=== PATIENT | female | born 1980 | race Caucasian/White ===

== ENCOUNTER → 2023-06-08 13:45 | Outpatient (BNV) | payer OTHER, SELFPAY | PROVIDERS: PCP Nurse Practitioner Family; Referring Provider Nurse Practitioner Family; Visit Provider Internal Medicine Medical Oncology | DX: D75.1 Secondary polycythemia (principal) | CPT/HCPCS: 99213; 99214 ==

== ENCOUNTER 2023-06-09 08:31 | Outpatient (REF) | payer OTHER, SELFPAY ==
[2023-06-09 09:02] LABS: Appearance Urine Clear; Color Urine Yellow; Glucose Urine UA Negative (Negative); Leukocyte Esterase Urine Negative (Negative); Nitrite Urine Negative (Negative); Specific Gravity - Urine 1.025 (1.005-1.025); Urine Blood Negative (Negative); Urine Ketones Negative (Negative); Urine Protein Negative (Neg-Trace)
== END 2023-06-09 08:32 | disposition home or self-care (01) ==
LOC: HO.LNP 08:31
PROVIDERS: Visit Provider Internal Medicine Medical Oncology
DX: D75.1 Secondary polycythemia (principal)
CPT/HCPCS: 81003

== ENCOUNTER 2023-06-11 12:48 | Outpatient (REF) | payer OTHER, SELFPAY ==
--- NOTE | ~2023-06-11 | US_ITS ---
EXAMINATION: US RETROPERITONEAL LIMITED (RENAL ONLY) CLINICAL INFORMATION: Question renal tumor. COMPARISON: None available. TECHNIQUE: Real-time ultrasound of the kidneys was performed. FINDINGS: RIGHT KIDNEY: 11 x 3.6 x 5.0 cm (SAG x AP x TRV). The kidney is normal in size, contour, and echogenicity. Renal cortical thickness is normal. No calculi or focal parenchymal lesions. No hydronephrosis. LEFT KIDNEY: 10.4 x 4.0 x 4.8 cm (SAG x AP x TRV). The kidney is normal in size, contour, and echogenicity. Renal cortical thickness is normal. No calculi or focal parenchymal lesions. No hydronephrosis. US/US renal BI IMPRESSION: Both kidneys are normal in size and echogenicity. No renal mass is identified.
== END 2023-06-11 12:49 | disposition home or self-care (01) ==
LOC: HO.HMGCX 12:48
PROVIDERS: PCP Nurse Practitioner Family; Visit Provider Internal Medicine Medical Oncology
DX: D75.1 Secondary polycythemia (principal)
CPT/HCPCS: 76775

== ENCOUNTER 2023-12-14 08:17 | Outpatient (REF) | payer OTHER, SELFPAY | END 2023-12-14 08:18 | disposition home or self-care (01) | LOC: HO.BBR 08:17 | PROVIDERS: Visit Provider Internal Medicine Medical Oncology | DX: D75.1 Secondary polycythemia (principal) | CPT/HCPCS: 85014; 85018; 99195 ==

== ENCOUNTER 2023-12-21 14:06 | Outpatient (REF) | payer OTHER, SELFPAY | END 2023-12-21 14:07 | disposition home or self-care (01) | LOC: HO.BBR 14:06 | PROVIDERS: PCP Nurse Practitioner Family; Visit Provider Internal Medicine Medical Oncology | DX: D75.1 Secondary polycythemia (principal) | CPT/HCPCS: 85014; 85018; 99195 ==

== ENCOUNTER 2024-03-14 11:00 | Outpatient (REF) | payer OTHER, SELFPAY ==
--- OUTSIDE RECORDS SUMMARY | 2024-03-21 13:00 | XMS_ITS | Continuity of Care Document ---
Author Organization [facility] Nico [address] Address [address] [place] [address]- Care Team Providers Care Granite Polisher Apprentice Name Role Phone Arabella Keen MD Primary Care Physician Encounter [facility] [place] Date(s): 02/18/24 - 03/19/24 [facility] Adult [address] [place] [address]- Encounter Type: Triage Allergies, Adverse Reactions, Alerts Substance Criticality Severity Reaction Reaction Severity Status naproxen Syncope Active Antacid vomiting Active aspirin vomiting Active Nuts 1 Active Apples 2 Active 1pt reports tongue swells with some nuts 2pt reports vomiting with raw apple Immunizations Given and Recorded Vaccine Date Status Refusal Reason tetanus-diphtheria toxoids (Td) 05/18/23 Given influenza virus vaccine, inactivated 01/15/23 Kaz rded influenza virus vaccine, inactivated 01/23/22 Kaz rded influenza virus vaccine, inactivated 01/20/18 Kaz rded influenza virus vaccine, inactivated 1 01/30/16 Re corded influenza virus vaccine, inactivated 02/19/15 Give n influenza virus vaccine, inactivated 2 01/09/14 Gi elder influenza virus vaccine, inactivated 3 02/07/13 Gi elder influenza virus vaccine, inactivated 4 02/18/10 Gi elder pneumococcal 20-valent conjugate vaccine 05/15/22 Given SARS-CoV-2 (COVID-19) mRNA BNT-162b2 vac 01/20/21 Recorded SARS-CoV-2 (COVID-19) mRNA-1273 vaccine 05/16/20 R ecorded SARS-CoV-2 (COVID-19) mRNA-1273 vaccine 04/25/20 R ecorded SARS-CoV-2 (COVID-19) mRNA-1273 vaccine 04/18/20 R ecorded Influenza Virus Vaccine (oldterm) 01/25/20 Recorde d tetanus/diphtheria/pertussis, acel(Tdap) 5 09/06/12 Given tetanus/diphtheria/pertussis, acel(Tdap) 11/06/10 Given Fluzone (oldterm) 6 02/08/12 Given Pneumococcal Vaccine (oldterm) 06/07/08 Given Tet/Diphth/Acel, Pertussis (oldterm) 06/07/08 Give n 1Result Comment: [facility]03[facility]09/2016[facility] 3[facility] Note: [facility] 4Admin Note: given at [facility] 5Admin Note: vis given 05/05/11 6Admin Note: 02-03-12 [facility] [employer] Problem List Condition Confirmation Course Effective Dates Status H ealth Status Informant Acute sinusitis Confirmed Active Allergic rhinitis Confirmed Active Bee sting allergy Confirmed Active Anxiety Confirmed Active Asthma - mild intermittent Confirmed Active Dizziness Confirmed Active Environmental allergies Confirmed Active Polycythemia Confirmed Active GERD (gastroesophageal reflux disease) Confirmed 02/14/09 Active Chronic GERD Confirmed Active Irritable bowel syndrome (IBS) Confirmed Active IBS (irritable bowel syndrome) Confirmed Active Major depression Confirmed 12/26/11 Active Migraine, Unspecified, without Mention of Intractable Migraine, without Mention of Status Migrainosus Confirmed Active Mild persistent asthma Confirmed Active Obese class I Confirmed Active Obesity (BMI 30-39.9) Confirmed Active Right ear pain Confirmed Active Retinal detachment Confirmed Active Scoliosis Confirmed Active Tachycardia Confirmed Active Fibroid uterus Confirmed Active Social History Social History Type Response Smoking Status Former smoker, quit more than 30 days ago; Other: quit in 2001; entered on: 02/23/22 Sex Sex Representation Female (finding) Patient Care team information Care Team Personnel Name: Lyndsay Martins Position: [facility] RN Member Role: Primary Care Nurse Name: Ruchi Valenzuela RN Position: S RN Member Role: Primary Care Nurse Name: Arabella Keen MD Position: [facility] Physician - Primary Care Member Role: PCP Address: [address] [place] [address]- Telecom: Care Team Related Persons Name: CLIFF RUELAS Name: MARCELLA JOSEPH Insurance Providers Guarantor name: ARABELLA CASTROMADYSON [facility] Plan Information #: 1 Payer: [facility] POS Member Number: NA Policy Number: NA Group Number: NA
--- OUTSIDE RECORDS SUMMARY | 2024-03-21 13:00 | XMS_ITS | Continuity of Care Document ---
Author Organization [facility] [address] Address [address] [place] [address]- Care Team Providers Care Branner Machine Tender Name Role Phone Arabella Keen MD Primary Care Physician [phone] Encounter [facility] [place] [place] Date(s): 02/15/24 - 03/16/24 [facility] Adult [address] [place] [address]- Encounter Type: Triage Allergies, Adverse Reactions, Alerts Substance Criticality Severity Reaction Reaction Severity Status naproxen Syncope Active aspirin vomiting Active Nuts 1 Active Apples 2 Active Antacid vomiting Active 1pt reports tongue swells with some [...] at [facility] 4Admin Note: given at [facility] 5Admin Note: vis given 05/05/11 6Admin Note: 02-03-12 [facility] Problem List Condition Confirmation Course Effective Dates [...] Care Team Personnel Name: Lyndsay Martins Position: [facility] RN Member Role: Primary Care Nurse Name: Ruchi Valenzuela RN Position: S RN Member Role: Primary Care Nurse Name: Arabella Keen MD Position: [facility] Physician - Primary Care Member Role: PCP Address: [address] [place] [address]- Telecom: Care Team Related Persons Name: CLIFF RUELAS Name: MARCELLA JOSEPH Insurance Providers Guarantor name: ARABELLA CASTROMADYSON [facility] Plan Information #: 1 Payer: [facility] POS Member Number: NA Policy Number: NA Group Number: NA
--- OUTSIDE RECORDS SUMMARY | 2024-03-21 13:00 | XMS_ITS | Continuity of Care Document ---
Author Organization [facility] Nico [facility] Address [address] [place] [address]- Care Team Providers Care Unit Secy Name Role Phone Arabella Keen MD Primary Care Physician En[place] [facility] [place](s): 02/14/24 - 02/21/24 [facility] Adult [address] [place] [address]- Encounter Diagnosis Polycythemia(Discharge Diagnosis) - 02/14/24 Major depression(Discharge Diagnosis) - 02/14/24 Tachycardia(Discharge Diagnosis) - 02/14/24 Anxiety(Discharge Diagnosis) - 02/14/24 Migraine, Unspecified, without Mention of Intractable Migraine, without Mention of Status Migrainosus(Discharge Diagnosis) - 02/14/24 Bee sting allergy(Discharge Diagnosis) - 02/14/24 Fibroid uterus(Discharge Diagnosis) - 02/14/24 Retinal detachment(Discharge Diagnosis) - 02/14/24 Attending Physician: Arabella Keen MD Allergies, Adverse Reactions, Alerts Substance Reaction Severity Status naproxen Syncope Active Antacid [...] Gi elder influenza virus vaccine, inactivated 4 11/9/10 Gi elder pneumococcal 20-valent conjugate vaccine 05/15/22 [...] (oldterm) 06/07/08 Give n 1Result Comment: [03/09/2016] [facility] 2Admin Note: GOT AT [facility] 3Admin Note: given at [facility] 4Admin Note: given at [facility] 5Admin Note: vis given 05/05/11 6Admin Note: 02-03-12 AT [facility] Medications Albuterol (Eqv-ProAir HFA) 90 mcg/inh inhalation aerosol 2 puffs, Inhalation, Every 6 hours, # 8.5 Gm, 4 Refills, Maintenance, 02/14/24 15:35:00 EST, [facility]/pharmacy #[id number], Partial fill upon patient request if the prescription is for a schedule II opioid drug., 2 puffs Inhalation Every 6 hours, 165, cm, ... Start Date: 02/14/24 Status: Ordered Benadryl 25 mg oral capsule 2 capsule = 50 mg, By Mouth, 2 times a day, PRN for allergy symptoms, # 30 capsule, 0 Refills, Maintenance, 04/16/22 17:41:00 EST, Capsule, Partial fill upon patient request if the prescription is for a schedule II opioid drug. Start Date: 04/16/22 Status: Ordered cannibus edibles cannibus edibles, Refills 0, Maintenance, 04/21/22 13:11:00 EST, Supply Start Date: 04/21/22 Status: Ordered Diflucan 150 mg oral tablet See Instructions, 1 tablet By Mouth as a single dose as needed for yeast infection, # 1 tablet, 0 Refills, Maintenance, 05/27/23 7:56:00 EST, Tablet, [id number], Partial fill upon patient request if the prescription is for a schedule II opioid... Start Date: 05/27/23 Status: Ordered doxepin 10 mg oral capsule 1 capsule, By Mouth, Daily at bedtime, # 90 capsule, 0 Refills, Maintenance, 06/05/23 12:27:00 EST,[id number], 165, cm, 05/27/23 7:51:00 EST, Height, 92.1, kg, 04/22/22 20:52:00 EST, Dry Weight Start Date: 06/05/23 Status: Ordered eletriptan 40 mg oral tablet See Instructions, TAKE 1 TABLET BY MOUTH ONCE NEEDED FOR MIGRAINE, MAY REPEAT IN 2 HOURS IF NEEDED, # 6 tablet, 6 Refills, Maintenance, 08/17/22 16:58:00 EDT, [id number], 165, cm, 07/20/2312:47:00 EDT, Height, 92.1, kg, 04/22/22 20:52:00 E... Start Date: 08/17/22 Status: Ordered hydrOXYzine hydrochloride 10 mg oral tablet 2 tablet = 20 mg, By Mouth, 4 times a day, PRN for anxiety, # 80 tablet, 5 Refills, Acute 03/15/24 15:38:00 EST, 02/14/24 15:38:00 EST, Tablet, [id number], Partial fill upon patient request if the prescription is for a schedule II opioid drug.... Start Date: 02/14/24 Stop Date: 03/15/24 Status: Ordered indomethacin 25 mg oral capsule See Instructions, TAKE 1 CAPSULE BY MOUTH AT ONSET OF MIGRAINE WITH ELETRIPTAN, # 180 capsule, 3 Refills, 08/10/22 17:47:00 EDT, [id number], 165, cm, 07/20/22 13:47:00 EDT, Height, 92.1, kg, 04/22/22 20:52:00 EST, Dry Weight Start Date: 08/10/22 Status: Ordered Liletta 52 mg intrauterine device 1 each = 52 mg, Once, 0 Refills, Maintenance, 02/01/19 7:47:48 EDT Start Date: 02/01/19 Status: Ordered montelukast 10 mg oral tablet 10 mg, 1, tablet, By Mouth, Daily, # 90 tablet, Refills 3, Tot. Refills 3, Maintenance, 02/14/24 15:34:00 EST, Route to Pharmacy Electronically, [facility]/pharmacy #[id number], Partial fill upon patient request if the prescription is for a schedule II opioid drug... Start Date: 02/14/24 Status: Ordered Multivitamin Daily, 0 Refills, Maintenance, 06/08/16 11:20:42 Start Date: 06/08/16 Status: Ordered pantoprazole 40 mg oral delayed release tablet 1 tablet = 40 mg, By Mouth, 2 times a day, # 180 tablet, 3 Refills, Maintenance, 06/18/21 12:50:00 EST, EC Tablet, 158.5, cm, 06/10/21 7:50:00 EST, Height Start Date: 06/18/21 Stop Date: 06/13/22 Status: Ordered Pulmicort Flexhaler 180 mcg 1 puffs, Inhalation, 2 times a day, # 1 each, 11 Refills, Maintenance, 02/21/24 10:05:00 EST, Powder, [facility]/pharmacy #[id number], Partial fill upon patient request if the prescription is for a schedule II opioid drug., 1 puffs Inhalation 2 times a day, 165, c... Start Date: 02/21/24 Status: Ordered triamcinolone 55 mcg/inh nasal spray See Instructions, USE 1 SPRAY IN EACH NOSTRIL TWICE A DAY, # 16.9 Unknown, 0 Refills, Maintenance, 10/11/22 18:59:00 EDT, [id number], 30, USE 1 SPRAY IN EACH NOSTRIL TWICE A DAY, 165, cm, 09/14/22 6:50:00 EDT, Height, 92.1, kg, 04/22/22 20:52:00... Start Date: 10/11/22 Status: Ordered venlafaxine 37.5 mg oral capsule, extended release 37.5 mg, 1, capsule, By Mouth, Daily, # 30 capsule, Refills 5, Tot. Refills 5, Maintenance, 02/14/24 15:27:00 EST, Route to Pharmacy Electronically, [facility]/pharmacy #[id number], Partial fill upon patient request if the prescription is for a schedule II opioid... Start Date: 02/14/24 Status: Ordered ZyrTEC 10 mg oral tablet 1 tablet = 10 mg, By Mouth, 2 times a day, 0 Refills, Maintenance, 08/10/18 11:34:50 EDT Start Date: 08/10/18 Status: Ordered Problem List Condition Confirmation Course Effective Dates Status H ealth Status Informant Acute sinusitis Confirmed Active Allergic rhinitis Confirmed Active Bee sting allergy Confirmed Active Anxiety Confirmed Active Asthma - mild intermittent Confirmed Active Environmental allergies Confirmed Active Polycythemia [...] Tachycardia Confirmed Active Fibroid uterus Confirmed Active Diagnosis Diagnosis Type Effective Dates Health Status Clinical Service Informant Polycythemia Discharge Diagnosis 02/14/24 Major depression Discharge Diagnosis 02/14/24 Tachycardia Discharge Diagnosis 02/14/24 Anxiety Discharge Diagnosis 02/14/24 Migraine, Unspecified, without Mention of Intractable Migraine, without Mention of Status Migrainosus Discharge Diagnosis 02/14/24 Bee sting allergy Discharge Diagnosis 02/14/24 Fibroid uterus Discharge Diagnosis 02/14/24 Retinal detachment Discharge Diagnosis 02/14/24 Vital Signs Most recent to oldest [Reference Range]: 1 Height 165 cm (02/14/24 2:50 PM) Weight 87.7 kg (02/14/24 2:50 PM) Oxygen Saturation [94-100 %] 100 % (02/14/24 2:50 PM) Pulse Rate [55-90 bpm] 105 bpm *H* (02/14/24 2:50 PM) Body Mass Index [18.5-24.99 kg/m2] 32.21 kg/m2 *>HHI* (02/14/24 2:50 PM) Blood Pressure [90-138/55-84 mm Hg] 131/ 77mm Hg (02/14/24 2:50 PM) Blood pressure sites Arm, left (02/14/24 2:50 PM) Weight Obtained Via Standing scale (02/14/24 2:50 PM) Social History Social History Type Response Smoking Status Former smoker, quit more than 30 days ago; Other: quit in 2001; entered on: 02/23/22 Sex Note * Cedric Whitt: PERFORM Event Display: Patient Education/Instruction Authored Date: [id number] Ambulatory Adult Visit Summary [facility] Adult [facility] [place] [address] [place] [address] Name: ARABELLA JOSEPH : 1980?? Visit: 02/14/2024 14:43?? Ambulatory Visit Instructions ?? Your Care Team Primary Care Provider Arabella Keen MD? This Visit Provider Arabella Keen MD Your Diagnosis Polycythemia Major depression Asthma - mild intermittent Tachycardia Anxiety Migraine, Unspecified, without Mention of Intractable Migraine, without Mention of Status Migrainosus Bee sting allergy Mild persistent asthma Vitals Signs Pulse Rate:??105 bpm??High Height: 165 cm Systolic Blood Pressure: 131 mm Hg Weight: 87.7 kg Diastolic Blood Pressure: 77 mm Hg Body Mass Index:??32.21 kg/m2??Critical Oxygen Saturation: 100 % Body surface area: 2 What to do next Scheduled Follow-Up Appointments Wednesday 8:00 AM EST ?? With: Arabella Keen MD Where: [facility] [address] [place] [address]- Status: Pending Follow-Up Appointments Follow Up with??Arabella Keen MD When:??Within 1 month Why: dizziness f/u migraine anxiety?? Where: [address] [place] [address]- Follow Up with??Arabella Keen MD When:??Within 4 months Why: annual physical May 2023 Where: [address] [place] [address]- Future Orders Comprehensive Metabolic Panel - Once, *Est. 05/18/24 +/- 28 days, Future Order?? CBC w/ Differential - Once, *Est. 05/18/24 +/- 28 days, Future Order?? Lipid Panel - Once, *Est. 05/18/24 +/- 28 days, Future Order?? Metanephrines Fract Plasma - Routine, Once, 02/14/24 15:12:00 EST, Future Order, [facility], Blood?? TSH - Routine, Once, 02/14/24 15:18:00 EST, Future Order, [facility], Blood?? Free T4 - Routine, Once, 02/14/24 15:18:00 EST, Future Order, [facility], Blood?? Medications The list below reflects the information in our records and provided by you today along with any changes made during this visit. Please continue your medications until treatment is completed or stopped by your provider. If this is different from the information you have or there are other questions,please contact the prescribing provider. What How Much When Why Instructions New Albuterol (Albuterol (Eqv-ProAir HFA) 90 mcg/ inh inhalation aerosol) 2 puff(s) Inhalation Every 6 hours Asthma - mild intermittent Mild persistent asthma Refills: 4 Pickup at [facility]/pharmacy #[id number] New Beclomethasone (Qvar Redihaler 40 mcg/ inh inhalation aerosol) 40 Microgram Inhalation Twice a day Mild persistent asthma Refills: 3 Pickup at [facility]/pharmacy #[id number] New HydrOXYzine (hydrOXYzine hydrochloride 10 mg oral tablet) 2 tab(s) Oral 4 times a day as needed for for anxiety Anxiety Major depression Refills: 5 Pickup at [facility]/pharmacy #[id number] New Venlafaxine (venlafaxine 37.5 mg oral capsule, extended release) 1 capsule Oral Daily Major depression Anxiety Migraine, Unspecified, without Mention of Intractable Migraine, without Mention of Status Migrainosus Refills: 5 Pickup at [facility]/pharmacy #[id number] Unchanged Cetirizine (ZyrTEC 10 mg oral tablet) 1 tab(s) Oral Twice a day Unchanged DiphenhydrAMINE (Benadryl 25 mg oral capsule) 2 capsule Oral Twice a day as needed for for allergy symptoms Unchanged Doxepin (doxepin 10 mg oral capsule) 1 capsule Oral Daily at Bedtime Unchanged Eletriptan (eletriptan 40 mg oral tablet) See instructions TAKE 1 TABLET BY MOUTH ONCE NEEDED FOR MIGRAINE, MAY REPEAT IN 2 HOURS IF NEEDED ?? Unchanged Fluconazole (Diflucan 150 mg oral tablet) See instructions 1 tablet By Mouth as a single dose as needed for yeast infection ?? Unchanged Indomethacin (indomethacin 25 mg oral capsule) See instructions TAKE 1 CAPSULE BY MOUTH AT ONSET OF MIGRAINE WITH ELETRIPTAN ?? Unchanged Levonorgestrel (Liletta 52 mg intrauterine device) 1 Each Once Unchanged Miscellaneous Rx (cannibus edibles) Unchanged Montelukast (montelukast 10 mg oral tablet) 1 tab(s) Oral Daily Pickup at [facility]/pharmacy #[id number] Unchanged Multivitamin Daily Unchanged Pantoprazole (pantoprazole 40 mg oral delayed release tablet) 1 tab(s) Oral Twice a day Duration: 90 Days Unchanged Triamcinolone Nasal (triamcinolone 55 mcg/ inh nasal spray) See instructions USE 1 SPRAY IN EACH NOSTRIL TWICE A DAY ?? Pharmacy Information [facility]/pharmacy #[id number]: [id number] [place] [phone] Test Performed Below is a partial list of the tests performed during your Visit. You may have had other tests and procedures not included in this list. Please discuss all test results with your provider. Free T4?-- Results Pending -- Metanephrines Fract Plasma?-- Results Pending -- TSH?-- Results Pending -- Medications and Immunizations Administered Medications Given During Visit No medications given during this visit.?? Allergies (NKA means No Known Allergies) Antacid??(vomiting) Apples Nuts aspirin??(vomiting) naproxen??(Syncope) Common Emergency Awareness Tips IS IT A STROKE? Act FAST and Check for these signs: FACE Does the face look uneven? ARM Does one arm drift down? SPEECH Does their speech sound strange? TIME Call at any sign of stroke ?? Heart Attack Signs Chest discomfort: Most heart attacks involve discomfort in the center of the chest and lasts more than a few minutes, or goes away and comes back. It can feel like uncomfortable pressure, squeezing, fullness or pain. Discomfort in upper body: Symptoms can include pain or discomfort in one or both arms, back, neck, jaw or stomach. Shortness of breath: With or without discomfort. Other signs: Breaking out in a cold sweat, nausea, or lightheaded. Remember, MINUTES DO MATTER. If you experience any of these heart attack warning signs, call to get immediate medical attention! ?? Smoking can increase your chances of developing chronic health problems and can cause harmful effects to other family members in your house. If you smoke, you are strongly encouraged to quit. Please call [facility] at [phone] or [phone] ([phone]) or log in to [email or web address] for referrals to smoking cessation programs. ?? The National Suicide Prevention Hotline is available 02/11 if you or someone you know needs to find a reason to keep living. By calling 3-607-176-[employer] (6404) you'll be connected to a skilled, trained counselor at a crisis center in your area. [facility] You can view and manage your care through the patient portal or by using a health care dianna of your choosing. [employer] is a website that allows you to securely view your medical information including your hospital discharge summary, office visit summaries, medications and follow-up visits. You can also request appointments, renew medications, and request access to your medical information using a health care dianna of your choosing, or just ask a question. You can enroll at [email or web address] or register during your next office visit. [facility], in keeping with [facility] guidance, no longer requires face masks for staff, patientsor visitors in most situations. Similiar to time spent indoors at other locations, there is the chance that you were exposed to repiratory viruses during your time with us (such as flu or COVID-19). If you develop symptoms concerning for a viral respiratory infection, please seek testing (and treatment if indicated) from your medical provider or home test kit. ?? Disclaimer: The information provided is of a general nature and is intended to be used in conjunction with the recommendations and advice of your health care practitioner. Every effort has been made to ensure that the information provided is accurate and complete at the time it is provided to you however, as your needs change, or, as new information becomes available, different or additional instructions may be required. ?? If you have questions, please consult with your primary care provider or pharmacist, as appropriate. This information is not intended to serve as substitution for assessment and evaluation by a qualified health care provider. If you do not have a primary care provider, you may find a [facility] provider by calling [facility] at [phone]. Patient Care team information Care Team Personnel Name: Lyndsay Martins Position: [facility] RN Member Role: Primary Care Nurse Name: Ruchi Valenzuela RN Position: [facility] RN Member Role: Primary Care Nurse Name: Arabella Keen MD Position: [facility] Physician - Primary Care Member Role: PCP Address: Address: [address] [place] [address]- Care Team Related Persons Name: CLIFF RUELAS Address: [address] [place] [address] Name: MARCELLA JOSEPH Address: home [address] [place] [address]
--- OUTSIDE RECORDS SUMMARY | 2024-03-21 13:00 | XMS_ITS | Continuity of Care Document ---
Author Organization [facility] Address [address] [place] [address]- Care Team Providers Care Laser Technician Name Role Phone Arabella Keen MD Primary Care Physician [phone] [place]counter [facility] Date(s): 02/11/24 - 03/12/24 [facility] Adult [address] [place] [address]- Encounter Type: Triage Allergies, Adverse Reactions, Alerts [...] at [facility] 4Admin Note: given at [facility] 5Admin Note: vis given 05/05/11 6Admin Note: 02-03-12 [facility] Problem List Condition Confirmation Course Effective Dates [...] Care Team Personnel Name: Lyndsay Martins Position: [facility] RN Member Role: Primary Care Nurse Name: Ruchi Valenzuela RN Position: [facility] RN Member Role: Primary Care Nurse Name: Arabella Keen MD Position: [facility] Physician - Primary Care Member Role: PCP Address: [address] [place] [address] [place] [address]- Telecom: Care Team Related Persons Name: CLIFF RUELAS Name: MARCELLA JOSEPH Insurance Providers Guarantor name: ARABELLA JOSEPH [facility] Plan Information #: 1 Payer: [facility] POS Member Number: NA Policy Number: NA Group Number: NA
--- OUTSIDE RECORDS SUMMARY | 2024-03-21 13:00 | XMS_ITS | Continuity of Care Document ---
Author Organization [facility] Address [address] [place] [address]- Care Team Providers Care Ion Exchange Operator Name Role Phone Arabella Keen MD Primary Care Physician Encounter [facility] [place] Date(s): 02/15/24 - 03/16/24 [facility] Adult [address] [place] [address]- Encounter Type: Triage Allergies, Adverse Reactions, Alerts [...] at [facility] 4Admin Note: given at [facility] 5Admin Note: vis given 05/05/11 6Admin Note: 02-03-12 AT [facility] Problem List Condition Confirmation Course Effective Dates [...] Care Team Personnel Name: Lyndsay Martins Position: [facility] RN Member Role: Primary Care Nurse Name: Ruchi Valenzuela RN Position: S RN Member Role: Primary Care Nurse Name: Arabella Keen MD Position: [facility] Physician - Primary Care Member Role: PCP Address: [address] [place] [address]- Telecom: Care Team Related Persons Name: CLIFF RUELAS Name: MARCELLA JOSEPH Insurance Providers Guarantor name: ARABELLA [facility]STROMAD[facility] Plan Information #: 1 Payer: [facility] POS Member Number: NA Policy Number: NA Group Number: NA
== END 2024-03-14 11:01 | disposition home or self-care (01) ==
LOC: HO.BBR 11:00
PROVIDERS: Visit Provider Internal Medicine Medical Oncology
DX: D75.1 Secondary polycythemia (principal)
CPT/HCPCS: 85018; 99195

== ENCOUNTER 2024-05-02 13:25 | Outpatient (AMB) | payer OTHER, SELFPAY ==
[2024-05-02 13:29] VITALS: BP 130/72; PULSE 97; BMI 35.5
--- NOTE | 2024-05-02 13:29 | A.OFFVIS_ITS ---
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/ fluctuating bp Intake Note: New patient tachycardia when having blood drawn c/o palpitations and sob sometimes but with anxiety Funding Coordinator Required: No Allergies naproxen Allergy (Verified 03/14/24 08:26) Unconscious aspirin Adverse Reaction (Verified 03/14/24 08:26) Vomiting NSAIDS (Non-Steroidal Anti-Inflamma Adverse Reaction (Verified 03/14/24 08:26) Vomiting Medication List - Last Reconciled 05/02/24 by Maulik Hathaway MD budesonide 180 mcg/actuation (Pulmicort Flexhaler) inhalation cetirizine (Zyrtec) 20 mg PO BID estradiol 1 patch transdermal QWEEK montelukast 10 mg PO DAILY pantoprazole mg PO triamcinolone acetonide 1 spray intranasal BID HPI Comments Details: Thank you for referring Sabra in cardiology consultation today. He is a pleasant 43-year-old female who has been seen in Hematology for erythrocytosis. Causes unclear. His she has been worked up and there is low likelihood of polycythemia vera or other etiology. She denies any history of sleep apnea. She says she was worked up prior to this diagnose is at [facility] and has had no obstructive sleep apnea although she has gained some weight. She says she was r eferred to blood back for therapeutic phlebotomy but was noted to have elevated heart rate and this concerned the blood bank and was referred for further cardiac evaluation. She says she has always had a faster heart rate. She has not noticed any significant palpitations occasionally however she feels racing of her heart which is once or twice a week. She also complains of increased exertional shortness of breath over the last few months. No orthopnea, PND, leg edema. No exertional chest pain. No lightheadedness, syncope. She hydrates herself well and drinks a lot of water. She avoid salt intake. There was mentioned of labile blood pressure although she says a blood pressures been more or less stable. She gets frequent headaches. She also has anxiety and panic attacks. [facility] Medical History Hernia Scoliosis Migraine IBS (irritable bowel syndrome) Family History Maternal Aunt Breast cancer Mother Lung cancer Social History Household Members: Family Patient Tobacco Use Status: Never used Tobacco Substance Use Type: Marijuana service: No Current occupational status: employed Review of Systems Const Denies chills, Denies daytime sleepiness, Denies fatigue, Denies fever(s), Denies frequent falls, Denies poor appetite, Denies snoring, Denies stops breathing during sleep, Denies weakness, Denies weight gain and Denies weight loss Eyes Denies loss of vision ENT Denies dizziness and Denies hearing loss Card Denies chest pain, Denies claudication, Denies leg edema, Denies lightheadedness, Reports palpitations, Reports dyspnea, Denies dyspnea on exertion and Denies orthopnea Resp Denies cough, Denies excessive phlegm production, Reports dyspnea, Denies dyspnea on exertion, Denies snoring and Denies wheezing GI Denies abdominal pain, Denies hematochezia, Denies change in bowel habits, Denies nausea and Denies vomiting Denies urinary frequency and Denies dysuria Musc Denies arthralgias, Denies muscle weakness, Denies numbness and Denies other (frequent falls) Skin/Breast Denies nail changes and Denies rash Neuro Denies Abnormal speech present, Denies dizziness, Denies frequent falls, Denies loss of vision, Denies memory loss, Denies numbness and Denies weakness Psych Denies depression and Denies memory loss Endo Denies fatigue and Reports palpitations Byron/Lymph Reports easy bruising and Reports other (anemia) Aller/Immun Denies wheezing Physical Exam Vital Signs: Last Vital Signs Pulse 97 05/02/24 13:29 BP 130/72 05/02/24 13:29 BMI result Body Mass Index 35.5 Const General: cooperative, comfortable, no acute distress, alert, awake and anxious Nutritional Appearance: obese Orientation/consciousness: patient oriented x3 Limitations: no limitations HEENT Head: Yes normocephalic and Yes atraumatic Neck Neck: Yes trachea midline, Yes supple and Yes no JVD Resp Effort & Inspection: normal respiratory effort Auscultation: clear to auscultation bilaterally Cardio Jugular venous distension: no JVD Palpation: normal PMI Rate: regular rate Rhythm: regular rhythm Heart sounds: S1 normal heart sound present, S2 normal heart sound present, no click, no gallops, no murmurs and no rubs GI Inspection: Yes obesity Auscultation: normal bowel sounds Skin General skin exam: no rashes or lesions noted Neuro General: patient oriented x3 and no focal motor deficits Speech: No Abnormal speech present Extrem General: Yes no clubbing, cyanosis or edema Psych Appearance: grossly normal Office Procedures EKG Details: EKG shows normal sinus rhythm with normal EKG 21008-[id number], Complete Assessment & Plan Assessment & Plan (1) Tachycardia: Code(s): R00.0 - Tachycardia, unspecified Category: Medical Plan: Patient was episodes of tachycardia of unclear etiology. Question SVT. She has baseline elevated heart rate and could have dysautonomia related to in appropriate sinus tachycardia. Could also be related to her anxious personality. I would like to work her up further with a Holter monitor for at least 14 days to evaluate for any significant arrhythmias and overall see what her general heart rate is. Also suggest her to have a plasma metanephrine levels. Given her symptoms exertional shortness of breath I would suggest an echocardiogram to evaluate for LV systolic and diastolic function. These tests will be scheduled in near future. If she has significant persistent sinus tachycardia, may benefit from nonselective beta-deisi therapy with Inderal. Stress mitigation strategies was discussed. Avoidance of stimulants was discussed. Advised to maintain adequate hydration. Will follow up in the clinic in 2 months time, sooner p.r.n.. Thank you for allowing me to partake in his care Orders: Orders CA echo transthoracic complete 05/02/24 R00.0 - Tachycardia, unspecified Metanephrines, Plasma 05/02/24 R00.0 - Tachycardia, unspecified ECG 14 day holter monitor 05/02/24 R00.0 - Tachycardia, unspecified Coding Level of Care Code New Pt Level 4 (77413) Complex EM visit Add On G2211 Diagnoses Tachycardia R00.0 CPT Codes EKG - CPT: 29894-[id number], Complete ([id number])
--- OUTSIDE RECORDS SUMMARY | 2024-05-02 15:11 | XMS_ITS | Continuity of Care Document ---
Author Organization [facility] Address [address] [facility], [address] d Floor, [address] [place] [address]- Care Team Providers Care Cleat Maker Name Role Phone Osmani SANCHEZ, Arabella Primary Care Physician [phone] Encounter [facility] [place] Date(s): 03/20/24 - 04/19/24 [facility] [address] [place] [address] [place] [address] Attending Physician: Luba East Admitting Physician: Luba East Referring Physician: Luba East Encounter Type: Triage Allergies, Adverse Reactions, Alerts Substance Criticality Severity Reaction Reaction Severity Status naproxen Syncope Active Apples 1 Active Antacid vomiting Active aspirin vomiting Active Nuts 2 Active 1pt reports vomiting with raw apple 2pt reports tongue swells with some nuts Immunizations Given and Recorded Vaccine Date Status [...] Comment: [03/09/2016] [facility] 2Admin Note: GOT AT [facility] 3Admin Note: given at [facility] 4Admin Note: given at [facility] 5Admin Note: vis given 05/05/11 6Admin Note: 02-03-12 [facility] Problem List Condition Confirmation Course Effective Dates [...] Care Team Personnel Name: Lyndsay Martins Position: [facility] RN Member Role: Primary Care Nurse Name: Ruchi Valenzuela RN Position: [facility] RN Member Role: Primary Care Nurse Name: Arabella Keen MD Position: [facility] Physician - Primary Care Member Role: PCP Address: [address] [place] [address]- [place] Telecom: Care Team Related Persons Name: CLIFF RUELAS Name: MARCELLA JOSEPH Insurance Providers Guarantor name: ARABELLA JOSEPH Health Plan Information #: 1 Payer: [facility] POS Member Number: NA Policy Number: NA Group Number: NA
--- OUTSIDE RECORDS SUMMARY | 2024-05-02 15:11 | XMS_ITS | Continuity of Care Document ---
Author Organization [facility] Address [address] [place] [address] [facility] Name Relationship Address Phone GLORIAER, GLORYER spouse Unknown Unavailab le TOWER, CHRISTOPHER Personal Relationship Unknown Unavailable TOWER, ARABELLA Personal Relationship Unknown Unavai lable TOWER, CHRISTOPHER Personal Relationship Unknown Unavailable TOWER, CHRISTOPHER Personal Relationship Unknown Unavailable SURAJ, CLIFF mother Unknown Unavailable TOWER, ARABELLA L Personal Relationship Unknown Unava ilable Care Team Providers Care Nursing Instructor Name Role Phone Osmani SANCHEZ, Arabella Primary Care Physician [phone] [place] [facility] [place](s): 03/14/24 - 04/13/24 [facility] [address] [place] [address] Encounter Type: Triage Allergies, Adverse Reactions, Alerts [...] at [facility] 4Admin Note: given at [facility] 5Admin Note: vis given 05/05/11 6Admin Note: 02-03-12 [facility] Problem List Condition Confirmation Course Effective Dates [...] Care Team Personnel Name: Lyndsay Martins Position: S RN Member Role: Primary Care Nurse Name: Ruchi Valenzuela RN Position: S RN Member Role: Primary Care Nurse Name: Arabella Keen MD Position: S Physician - Primary Care Member Role: PCP Address: [address] [place] [address] [facility] [place] [address]- [place] Telecom: Care Team Related Persons Name: CLIFF RUELAS Name: MARCELLA JOSEPH Insurance Providers Guarantor name: ARABELLA JOSEPH Health Plan Information #: 1 [facility] Member Number: NA Policy Number: NA Group Number: NA
--- OUTSIDE RECORDS SUMMARY | 2024-05-02 15:11 | XMS_ITS | Continuity of Care Document ---
Author Organization [facility] Address [address] [facility], [address] Floor, [address] [place] [address]- Care Team Providers Care Typewriter Tester Name Role Phone Osmani SANCHEZ, Arabella Primary Care Physician Encounter [facility] [place] Date(s): 03/17/24 - 04/16/24 [facility] [address] [place] [address], [address] [place] [id number] Encounter Type: Triage Allergies, Adverse Reactions, Alerts [...] at [facility] 4Admin Note: given at [facility] 5Admin Note: vis given 05/05/11 6Admin [...] Care Nurse Name: Arabella Keen MD Position: [facility] Physician - Primary Care Member Role: PCP Address: [address] [place] [address]- Telecom: Care Team Related Persons Name: CLIFF RUELAS Name: MARCELLA JOSEPH Insurance Providers Guarantor name: ARABELLA JOSEPH [facility] Plan Information #: 1 [facility] Member Number: NA Policy Number: NA Group Number: NA
== END 2024-05-02 14:20 | disposition home or self-care (01) ==
PROVIDERS: PCP Student in an Organized Health Care Education/Training Program; Visit Provider Internal Medicine Cardiovascular Disease
DX: R00.0 Tachycardia, unspecified (principal)
CPT/HCPCS: 93010; 99204

== ENCOUNTER → 2024-05-02 13:25 | Outpatient (BNVA) | payer OTHER, SELFPAY | PROVIDERS: PCP Student in an Organized Health Care Education/Training Program; Visit Provider Internal Medicine Cardiovascular Disease | DX: R00.0 Tachycardia, unspecified (principal) | CPT/HCPCS: 93005 ==

== ENCOUNTER → 2024-05-19 08:10 | Outpatient (BNV) | payer OTHER, SELFPAY | PROVIDERS: PCP Student in an Organized Health Care Education/Training Program; Visit Provider Internal Medicine Cardiovascular Disease | DX: R94.31 Abnormal electrocardiogram [ECG] [EKG] (principal) | CPT/HCPCS: 93306 ==

== ENCOUNTER 2024-06-13 10:58 | Outpatient (REF) | payer OTHER, SELFPAY ==
--- OUTSIDE RECORDS SUMMARY | 2024-06-13 13:37 | XMS_ITS | Continuity of Care Document ---
Author Organization [facility] Address [address] [place] [address]- [facility] Name Relationship Address Phone JAKE, MARCELLA spouse Unknown Unavailab le TOWER, CHRISTOPHER Personal Relationship Unknown Unavailable TOWER, ARABELLA Personal Relationship Unknown Unavai lable TOWER, CHRISTOPHER Personal Relationship Unknown Unavailable TOWER, CHRISTOPHER Personal Relationship Unknown Unavailable SURAJ, CLIFF mother Unknown Unavailable TOWER, ARABELLA L Personal Relationship Unknown Unava ilable Care Team Providers Care Bench Mechanic Name Role Phone Arabella Keen MD Primary Care Physician Encounter [facility] [place] Date(s): 05/12/24 - 06/11/24 [facility] [address] [place] [address] Encounter Type: Triage Allergies, Adverse Reactions, Alerts [...] vac 01/20/21 Recorded SARS-CoV-2 (COVID-19) mRNA-1273 vaccine 2/4/21 R ecorded SARS-CoV-2 (COVID-19) mRNA-1273 vaccine 04/25/20 [...] at [facility] 4Admin Note: given at [facility] 5Admin Note: vis given 05/05/11 6Admin Note: 02-03-12 AT [facility] [employer] Problem List Condition Confirmation Course Effective Dates Status H ealth Status Informant Allergic rhinitis Confirmed Active Bee sting allergy Confirmed Active Anxiety Confirmed Active Dizziness Confirmed Active Environmental allergies Confirmed Active Polycythemia Confirmed Active Family history of breast cancer Confirmed Active Chronic GERD Confirmed Active Irritable bowel syndrome (IBS) Confirmed Active Major depression Confirmed 12/26/11 Active Migraine, Unspecified, without Mention of Intractable Migraine, without Mention of Status Migrainosus Confirmed Active Mild persistent asthma Confirmed Active Obese class I Confirmed Active Obesity (BMI 30-39.9) Confirmed Active Plantar fasciitis Confirmed Active Retinal detachment Confirmed Active Scoliosis Confirmed Active Tachycardia Confirmed Active Fibroid uterus Confirmed Active Social History Social History Type Response Smoking Status Former smoker, quit more than 30 days ago; Other: smoked cig 23 years??ago in 2001 - smoked 0.5 to 1 PPD for 10 years??; entered on: 05/19/24 Sex Sex Representation Female (finding) Patient Care team information Care Team Personnel Name: Lyndsay Martins Position: S RN Member Role: Primary Care Nurse Name: Ruchi Valenzuela RN Position: S RN Member Role: Primary Care Nurse Name: Arabella Keen MD Position: [facility] Physician - Primary Care Member Role: PCP Address: [address] [place], [place] [address]ley [facility] [place] [address]- [place] Telecom: Care Team Related Persons Name: CLIFF RUELAS Name: MARCELLA JOSEPH Insurance Providers Guarantor name: ARABELLA JOSEPH Health Plan Information #: 1 [facility] Member Number: NA Policy Number: NA Group Number: NA
--- OUTSIDE RECORDS SUMMARY | 2024-06-13 13:37 | XMS_ITS | Continuity of Care Document ---
Author Organization [facility] Flako Nico lt Address [address] [place] [address]- Care Team Providers Care Coding Specialist Name Role Phone Arabella Keen MD [id number] Raj Burgosley Adult [address] [place] [address]- Encounter Diagnosis Annual physical exam(Discharge Diagnosis) - 05/19/24 Screening for viral disease(Discharge Diagnosis) - 05/19/24 Anxiety(Discharge Diagnosis) - 05/19/24 Migraine, Unspecified, without Mention of Intractable Migraine, without Mention of Status Migrainosus(Discharge Diagnosis) - 05/19/24 Major depression(Discharge Diagnosis) - 05/19/24 Obese class I(Discharge Diagnosis) - 05/19/24 Chronic GERD(Discharge Diagnosis) - 05/19/24 Environmental allergies(Discharge Diagnosis) - 05/19/24 Allergic rhinitis(Discharge Diagnosis) - 05/19/24 Bee sting allergy(Discharge Diagnosis) - 05/19/24 Irritable bowel syndrome (IBS)(Discharge Diagnosis) - 05/19/24 Retinal detachment(Discharge Diagnosis) - 05/19/24 Mild persistent asthma(Discharge Diagnosis) - 05/19/24 Family history of breast cancer(Discharge Diagnosis) - 05/19/24 Elevated blood pressure reading(Discharge Diagnosis) - 05/19/24 Plantar fasciitis(Discharge Diagnosis) - 05/19/24 Dizziness(Discharge Diagnosis) - 05/19/24 Attending Physician: Arabella Keen MD Encounter Type: Office Visit Allergies, Adverse Reactions, Alerts Substance Criticality Severity [...] [facility] 4Admin Note: given at [facility] 5Admin Note: vis given 05/05/11 6Admin Note: [...] Effective Dates Health Status Clinical Service Informant Annual physical exam Discharge Diagnosis 05/19/24 Screening for viral disease Discharge Diagnosis 05/19/24 Anxiety Discharge Diagnosis 05/19/24 Migraine, Unspecified, without Mention of Intractable Migraine, without Mention of Status Migrainosus Discharge Diagnosis 05/19/24 Major depression Discharge Diagnosis 05/19/24 Obese class I Discharge Diagnosis 05/19/24 Chronic GERD Discharge Diagnosis 05/19/24 Environmental allergies Discharge Diagnosis 05/19/24 Allergic rhinitis Discharge Diagnosis 05/19/24 Bee sting allergy Discharge Diagnosis 05/19/24 Irritable bowel syndrome (IBS) Discharge Diagnosis 05/19/24 Retinal detachment Discharge Diagnosis 05/19/24 Mild persistent asthma Discharge Diagnosis 05/19/24 Family history of breast cancer Discharge Diagnosis 05/19/24 Elevated blood pressure reading Discharge Diagnosis 05/19/24 Plantar fasciitis Discharge Diagnosis 05/19/24 Dizziness Discharge Diagnosis 05/19/24 Procedures Procedure Date Related Diagnosis Body Site Status Hernia repair 1 Completed 1hiatal hernia surgery in Apr 2022 Vital Signs Most recent to oldest [Reference Range]: 1 Height 165 cm (05/19/24 2:28 PM) Weight 88.4 kg (05/19/24 2:28 PM) Oxygen Saturation [94-100 %] 97 % (05/19/24 2:28 PM) Pulse Rate [55-90 bpm] 91 bpm *H* (05/19/24 2:28 PM) Body Mass Index [18.5-24.99 kg/m2] 32.47 kg/m2 *>HHI* (05/19/24 2:28 PM) Blood Pressure [90-138/55-84 mm Hg] 139/ 86mm Hg *H* (05/19/24 2:28 PM) Blood pressure sites Arm, right (05/19/24 2:28 PM) Weight Obtained Via Standing scale (05/19/24 2:28 PM) Social History Social History Type Response Smoking Status Former smoker, quit more than 30 days ago; Other: smoked cig 23 years??ago in 2001 - smoked 0.5 to 1 PPD for 10 years??; entered on: 05/19/24 Sex Sex Representation Female (finding) Note * Jennie Loera: PERFORM Event Display: Patient Education/Instruction Authored Date: Ambulatory Adult Visit Summary [facility] [address] [place] [address] Name: ARABELLA JOSEPH : 1980?? Visit: 05/19/2024 14:17?? Ambulatory Visit Instructions ?? Your Care Team Primary Care Provider Arabella Keen MD? This Visit Provider Arabella Keen MD Your Diagnosis Annual physical exam Screening for viral disease Anxiety Migraine, Unspecified, without Mention of Intractable Migraine, without Mention of Status Migrainosus Major depression Obese class I Chronic GERD Environmental allergies Allergic rhinitis Bee sting allergy Irritable bowel syndrome (IBS) Retinal detachment Mild persistent asthma Family history of breast cancer Elevated blood pressure reading Plantar fasciitis Dizziness Vitals Signs Pulse Rate:??91 bpm??High Height: 165 cm Systolic Blood Pressure:??139 mm Hg??High Weight: 88.4 kg Diastolic Blood Pressure:??86 mm Hg??High Body Mass Index:??32.47 kg/m2??Critical Oxygen Saturation: 97 % Body surface area: 2.01 What to do next Scheduled Follow-Up Appointments Wednesday 2:45 PM EDT ?? With: Faustino Torres MD Where: [facility] [address] [place] [address]- Status: Pending Follow-Up Appointments Follow Up with??Arabella Keen MD When:??Within 1 month Why: 1 month anxiety and depression f/u Where: [address] [facility] Adult [facility] [place] [address]- Future Orders MM Digital Mammo Screening, Routine, Reason for Exam: Family History of Breast Ca, Conditional Orders: MM Diag/US Breast/Guided Asp/Breast Bx, Patient Does Not Need Assistance, Once, *Est. 05/19/24 Comprehensive Metabolic Panel - Once, *Est. 05/18/24 +/- 28 days, Future Order?? CBC w/ Differential - Once, *Est. 05/18/24 +/- 28 days, Future Order?? Lipid Panel - Once, *Est. 05/18/24 +/- 28 days, Future Order?? TSH - Routine, Once, 05/15/24 8:52:00 EST, Order for Today, [facility], Blood?? T4 - Routine, Once, 05/15/24 8:52:00 EST, Order for Today, [facility], Blood?? Tissue Transglutaminase Ab IgA - Routine, Once, 05/15/24 8:52:00 EST, Order for Today, [facility], Blood?? IgA Level - Routine, Once, 05/15/24 8:52:00 EST, Order for Today, [facility], Blood?? Calprotectin Fecal - Routine, Stool, Once, 05/15/24 8:52:00 EST, Order for Today, [facility], Stool?? Ova and Parasite Exam - Routine, Stool, Once, 05/15/24 8:53:00 EST, Order for Today, [facility], Stool?? GI Profile, Stool, PCR - Routine, Once, 05/15/24 8:53:00 EST, Order for Today, [facility], Stool?? CBC w/ Differential - Routine, Once, 05/19/24 14:54:00 EST, Future Order, [facility], Blood?? Comprehensive Metabolic Panel - Routine, Once, 05/19/24 14:54:00 EST, Future Order, [facility], Blood?? Lipid Panel - Routine, Once, 05/19/24 14:55:00 EST, Future Order, [facility], Blood?? HIV Ab-Ag 4th Generation - Routine, Once, 05/19/24 14:55:00 EST, Future Order, [facility], Blood?? Hepatitis Profile - Routine, Once, 05/19/24 14:55:00 EST, Future Order, [facility], Blood?? Medications The [...] What How Much When Why Instructions New BusPIRone (busPIRone 7.5 mg oral tablet) 1 tab(s) Oral 3 times a day Anxiety Duration: 30 Days Refills: 3 Pickup at [facility]/pharmacy #[id number] New Escitalopram (escitalopram 10 mg oral tablet) 1 tab(s) Oral Daily Anxiety Major depression Refills: 5 Pickup at [facility]/pharmacy #[id number] New fluticasone-vilanterol (Breo Ellipta 50 mcg-25 mcg/ inh. inhalation powder) 1 inhalation Inhalation Daily Refills: 11 at the same time every day ?? Pickup at [facility]/pharmacy #[id number] Unchanged Albuterol (Albuterol (Eqv-ProAir HFA) 90 mcg/ inh inhalation aerosol) 2 puff(s) Inhalation Every 6 hours Asthma - mild intermittent Mild persistent asthma Unchanged Cetirizine (ZyrTEC 10 mg oral tablet) [...] IN 2 HOURS IF NEEDED ?? Unchanged Famotidine (famotidine 20 mg oral tablet) 1 tab(s) Oral Twice a day Unchanged Fluconazole (Diflucan 150 mg oral tablet) [...] mg oral tablet) 1 tab(s) Oral Daily Unchanged Multivitamin Daily Unchanged Pantoprazole (pantoprazole 40 mg oral delayed release tablet) 2 tab(s) Oral Twice a day Duration: 90 Days Unchanged Triamcinolone Nasal (triamcinolone 55 mcg/ inh nasal spray) See instructions USE 1 SPRAY IN EACH NOSTRIL TWICE A DAY ?? Pharmacy Information [facility]/pharmacy #[id number]: [id number] [place] [id number] [phone] Test Performed Below is a partial list of the tests performed during your Visit. You may have had other tests and procedures not included in this list. Please discuss all test results with your provider. CBC w/ Differential?-- Results Pending -- Comprehensive Metabolic Panel?-- Results Pending -- Hepatitis Profile?-- Results Pending -- HIV Ab-Ag 4th Generation?-- Results Pending -- Lipid Panel?-- Results Pending -- Medications and Immunizations Administered [...] are strongly encouraged to quit. Please call [employer] [facility] at [phone] or [phone] ([phone]) or log in to [email or web address] for referrals to smoking cessation programs. ?? The National Suicide Prevention Hotline is available 02/11 if you or someone you know needs to find a reason to keep living. By calling 2-006-500-qkqg (6846) you'll be connected to a skilled, trained counselor at a crisis center in your area. [facility] [employer] Portal You can view and manage your care through the patient portal or by using a health care dianna of your choosing. [employer] is a website that allows you to securely view your medical information including your hospital discharge summary, office visit summaries, medications and follow-up visits. You can also request appointments, renew medications, and request access to your medical information using a health care dianna of your choosing, or just ask a question. You can enroll at [email or web address] or register during your next office visit. [facility], in keeping with [facility] guidance, no longer requires face masks for [...] primary care provider, you may find a [facility] provider by calling [facility] [employer] Link at [phone]. Patient Care team information Care Team Personnel Name: Lyndsay Martins Position: S RN Member Role: Primary Care Nurse Name: Ruchi Valenzuela RN Position: S RN Member Role: Primary Care Nurse Name: Arabella Keen MD Position: S Physician - Primary Care Member Role: PCP Address: [address] [place] [address]- [place] Telecom: Care Team Related Persons Name: CLIFF RUELAS Name: MARCELLA JOSEPH Insurance Providers Guarantor name: ARABELLA JOSEPH Health Plan Information #: 1 Payer: [employer] [facility] POS Member Number: [id number] Policy Number: NA Group Number: NA Health Plan Information #: 2 Payer: [facility] POS Member Number: [id number] Policy Number: NA Group Number: NA
--- OUTSIDE RECORDS SUMMARY | 2024-06-13 13:37 | XMS_ITS | Continuity of Care Document ---
Author Organization [facility] Nico lt Address [address] [place] [address]- Care Team Providers Care Research Laboratory Manager Name Role Phone Arabella Keen MD Primary [id number] Date[facility]s): [facility]17/24 - 05/21/24 [facility] Adult [address] [place] [address]- Attending Physician: Arabella Keen MD Encounter Type: Pre Office Visit Allergies, Adverse Reactions, Alerts Substance Criticality Severity Reaction Reaction Severity Status naproxen Syncope Active aspirin vomiting Active Antacid vomiting Active Nuts 1 Active Apples 2 [...] at [facility] 4Admin Note: given at [facility] 5Admin Note: vis given 05/05/11 6Admin Note: 02-03-12 [facility] [employer] Problem List Condition Confirmation Course Effective Dates [...] Care Team Personnel Name: Lyndsay Martins Position: [facility] RN Member Role: Primary Care Nurse Name: Ruchi Valenzuela RN Position: [facility] RN Member Role: Primary Care Nurse Name: Arabella Keen MD Position: [facility] Physician - Primary Care Member Role: PCP Address: [address] [place] [phone]- Telecom: Care Team Related Persons Name: CLIFF RUELAS Name: MARCELLA JOSEPH Insurance Providers Guarantor name: ARABELLA JOSEPH Health Plan Information #: 1 Payer: [email or web address] [facility] POS Member Number: [id number] Policy Number: NA Group Number: NA Health Plan Information #: 2 Payer: [facility] POS Member Number: [id number] Policy Number: NA Group Number: NA
== END 2024-06-13 10:59 | disposition home or self-care (01) ==
LOC: HO.BBR 10:58
PROVIDERS: PCP Student in an Organized Health Care Education/Training Program; Visit Provider Internal Medicine Medical Oncology
DX: D75.1 Secondary polycythemia (principal)
CPT/HCPCS: 85014; 85018; 99195